=== PATIENT | male | born 1985 | race Caucasian/White ===

== ENCOUNTER 2024-08-24 18:41 | Emergency (ER) | payer BC, SELFPAY ==
[2024-08-24 18:50] VITALS: BP 128/79
[2024-08-24] MEDS: KEFLEX 500 MG PO (20:34)
[2024-08-24 20:38] LABS: Hematocrit 41.2 % (39.0-52.0); Hemoglobin 14.3 g/dL (13.0-18.0); Mean Corp Hgb Conc. 34.7 g/dL (33.0-37.0); Mean Corpuscular Volume 86.9 fL (80.0-94.0); Nucleated Red Blood Cells % 0 % (-); Platelet Count 164 10^3/uL (130-400); Red Cell Dist. Width 11.9 % (11.5-14.5)
[2024-08-24 20:50] LABS: Blood Urea Nitrogen 25 mg/dl (9-20); Calcium 9.0 mg/dl (8.4-10.2); Carbon Dioxide 29 mmol/L (22-30); Chloride 108 mmol/L (98-107); Glucose 91 mg/dl (70-99); Potassium 3.9 mmol/L (3.5-5.1); Sodium 142 mmol/L (135-145); eGFR > 60.00
[2024-08-24 20:54] LABS: C-Reactive Protein < 5.00 mg/L (0.0-10.00)
--- NOTE | 2024-08-24 20:59 | ED.GENMED ---
History of Present Illness
General
Chief Complaint: Skin Problem
Source: patient
Time Seen by Provider: 08/24/24 19:37
History of Present Illness
History of Present Illness:
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
and while he was working long hours during the week states he does not recall any specific injury to the area. Patient notes he still has full range of motion of all digits but it feels tight along the right ring finger going down towards his wrist
and forearm but no skin changes around the wrist or forearm. No fevers, chills, rigors, no known tick exposures. Denies any traumatic injuries, no history of similar. Patient is right-hand dominant.
Past History
Past History
ED Past Medical History: None
ED Past Surgical History: None
Social History
Tobacco: Non-smoker
Alcohol: Occasional
Drug: None
Personal: Single
Living: with family
Employment: Employed
Review of Systems
Review of Systems
All Other Systems: ROS reviewed and negative except as documented in HPI and ROS
Phy Exam
Physical Exam
Physical Exam:
GENERAL: Alert , in no apparent distress
EYE: conjunctiva clear
Head: Normocephalic atraumatic
NECK: Supple,
ENT: mmm.
LUNGS: no acute respiratory distress
NEUROLOGICAL: Alert and oriented
SKIN: Warm and dry, erythema to the volar surface of the right ring finger concentrated mainly around the middle phalanx and proximal phalanx with some mild edema, slightly tender, no lymphangitis no erythema along the forearm or upper extremity
MUSCULOSKELETAL: well perfused. No obvious edema. Patient allows for full range of motion of all digits, wrist, elbow and shoulder without difficulty. Easily palpable radial pulse. Cap refill less than 2 seconds. Sensation grossly intact to
light touch.
PSYCH: Normal and appropriate interaction.
Scores
Heart Failure Risk
Heart Failure Risk Score: Not Applicable
Heart Score for Chest Pain Patients
STEMI patient?: Not applicable
Withdrawal Assessment of Alcohol
Withdrawal Assessment Completed?: Not applicable
Course
Orders/Labs/Results
Orders:
Orders
08/24/24 20:02
CR Hand - Right Min 3 Views Urgent
Comment:
Reason For Exam: pain/edema ring finger
08/24/24 20:04
Cephalexin Monohydrate [Keflex] 500 mg PO NOW STA
08/24/24 20:29
Basic Metabolic Panel Urgent
CRP [C-Reactive Protein] Urgent
Complete Blood Count/With Diff Urgent
ESR [Erythrocyte Sed Rate] Urgent
Lyme Progressive Urgent
Abnormal Lab Results
08/24/24
20:29
MPV 10.6 H fL
(7.4-10.4)
Chloride 108 H mmol/L
(98-107)
BUN 25 H mg/dl
(9-20)
08/24/24 20:29
08/24/24 20:29
Vital Signs
Initial and Last Documented VS:
Initial Vital Signs
Temp Pulse Resp BP Pulse Ox
98.7 F 78 18 128/79 98
08/24/24 18:50 08/24/24 18:50 08/24/24 18:50 08/24/24 18:50 08/24/24 18:50
Last Documented Vital Signs
Temp Pulse Resp BP Pulse Ox
98.1 F 61 18 128/75 96
08/24/24 21:33 08/24/24 21:33 08/24/24 18:50 08/24/24 21:33 08/24/24 21:33
MDM/Problems Addressed
Differential Diagnosis Includes:
- Cellulitis
- Tenosynovitis
- Felon
- Paronychia
- Lyme
- Vascular Complication
- Reynaud's
- Traumatic injury
MDM/Problems Addressed:
39-year-old male presented to the ER for evaluation of nontraumatic erythema and edema to the right ring finger. No fevers or infectious symptoms. No history of similar. Given the patient has full range of motion my suspicion for tenosynovitis is
low. Higher degree of suspicion for cellulitis versus inflammatory response. Will check labs including Lyme titer. X-ray ordered. Will initiate patient on Keflex. Disposition pending.
*Radiology
Radiology exam reviewed: preliminary read by ED provider (No fractures or foreign bodies)
*Pulse Oximetry
SaO2: 98
Oxygen Mode of Delivery: Room air
Patient hypoxic: no
*Critical Care Note
Total Time (30-74mins, 75-104mins- exclusive of procedures): Not Applicable
Patient Management
Social determinants of health affecting care: Living situation and Strong social support
Escalation/DeEscalation of care consider admission/obs:
Patient's workup reassuring, no leukocytosis and normal inflammatory markers. Prescription for Keflex provided here as well as sent to pharmacy. Patient aware of return precautions. Stable for discharge home.
ED Attending Note
-
Portions of this chart may have been created with voice recognition software.� Occasional wrong word or��sound alike� substitutions may have occurred due to the inherent limitations of voice recognition software.
Discharge Plan
Departure
Patient Disposition: Home (Routine Discharge)
Date of Disposition: 08/24/24
Time of Disposition: 21:32
Patient with high blood pressure during this ER visit?: No
Discharge Problem:
Cellulitis of right ring finger
Instructions: Cellulitis (Skin Infection), Adult (DC)
Prescriptions:
New
cephalexin 500 mg tablet
500 mg PO TID 7 Days Qty: 21 0RF
No Action
Takes No Home Medications
Referrals:
Oh Xie MD [Family Provider, Family Practice]
Ronald Ambrocio MD [Active, Orthopedics]
Interventions
Interventions:
*Risk Screen - Suicide Last Done: 08/24/24 18:53
*General Assessment Last Done: 08/24/24 19:46
*Neglect/Abuse Screening Last Done: 08/24/24 19:46
*ED- Fall Risk Assessment Last Done: 08/24/24 19:46
*ED COVID-19 Vaccine History Last Done: 08/24/24 19:46
*Nursing Disposition Last Done: 08/24/24 21:45
ED-Skin Assessment Last Done: 08/24/24 19:46
Discharge Date and Time
Discharge Date/Time: 08/24/24 21:45
Print Language: IRANIAN
[2024-08-24 21:33] VITALS: BP 128/75
[2024-08-28 13:59] LABS: Lyme Antibody Screen, EIA Negative (Negative)
== END 2024-08-24 21:45 | disposition home or self-care (01) ==
LOC: EMR 18:41
PROVIDERS: Physician Assistant Medical; EMERGENCY PHYSICIAN Emergency Medicine; FAMILY PHYSICIAN Family Medicine
DX: L03.011 Cellulitis of right finger (principal)
CPT/HCPCS: 99284; 73130; 80048; 85025; 85652; 86140; 86618